=== PATIENT | male | born 1985 | race Caucasian/White ===

== ENCOUNTER 2017-05-04 08:36 | Day surgery (SDC) | payer BC ==
[~2017-05-04 08:36] MED LIST: Lactated Ringers 1,000 ML IV ONE; Lactated Ringers 1,000 ML IV SCH
[2017-05-04] MEDS ORDERED: Ketamine HCl 50 MG/ML IV ONE (08:37)
[2017-05-04] MEDS ORDERED: DIPRIVAN 200 MG/20 ML IV ONE (08:37)
--- NOTE | 2017-05-04 09:24 | HP ---
DATE OF SURGERY: 05/04/2017 HISTORY OF PRESENT ILLNESS: The patient is a 31 year-old with past history of dysphagia, tertiary reflux despite proton pump inhibitor. I feel he would benefit from upper endoscopy, possible biopsy and possible dilatation depending on operative findings. PAST MEDICAL HISTORY: Gastroesophageal reflux disease, mitral valve prolapse. PAST SURGICAL HISTORY: Eye surgery, sinus surgery, reconstructive nose surgery, bilateral knee scopes, EGD. MEDICATIONS: Protonix. ALLERGIES: DEMEROL, BENADRYL, ROBITUSSIN. FAMILY HISTORY: Lung cancer, diabetes. SOCIAL HISTORY: No smoking or alcohol abuse. REVIEW OF SYSTEMS: Twelve systems reviewed per admission assessment. No chest pain or palpitations other systems negative or noncontributory as above and per preadmission questionnaire. PHYSICAL EXAMINATION: GENERAL: No acute distress. HEENT: Sclerae nonicteric. NECK: No JVD. CHEST: Equal excursion, nonlabored breathing. CVS: Regular rate and rhythm. ABDOMEN: Soft. No peritoneal signs. EXTREMITIES: No significant edema. NEURO: Alert, moving extremities symmetrically. No gross motor deficits noted. IMPRESSION: Dysphagia, occasional reflux despite proton pump inhibitor. He is in need of upper endoscopy possible biopsy, possible dilatation depending operative findings. Risks and benefits explained in detail including but not limited to bleeding or infection, risk of bowel injury or perforation possibly requiring open procedure, risk of missed or nondiagnosis or incomplete exam possibly requiring barium swallow, other studies or procedures, general risk of anesthesia or sedation, possibility this procedure may not improve his symptoms that he might need further work up and/or testing or other medical treatment. He understands and agrees to the planned procedure and will proceed with EGD with possible biopsy, possible dilatation as an outpatient.
[2017-05-04 11:28] VITALS: BP 114/70; PULSE 51; O2SAT 99
--- NOTE | 2017-05-05 09:26 | OP ---
SURGERY DATE/TIME: 05/04/2017 1015 PREOPERATIVE DIAGNOSIS: Worsening dysphagia, worsening reflux and heartburn. POSTOPERATIVE DIAGNOSES: 1) Erosive esophagitis. 2) Symptomatic proximal esophageal narrowing. 3) Gastritis. 4) Duodenitis. 5) Slight hiatal hernia. PROCEDURES: 1) EGD with cold biopsy of the small bowel to evaluate for celiac sprue. 2) Cold biopsy of the antrum to evaluate for Helicobacter pylori. 3) Cold biopsy distal esophagus esophagitis. 4) Proximal esophageal dilatation (size 20 balloon dilator). SURGEON: Dr. Philip Adame. ANESTHESIA: MAC. ESTIMATED BLOOD LOSS: Minimal. INDICATIONS: As noted above. Risks and benefits explained in detail and not limited to and consent obtained. DESCRIPTION OF PROCEDURE AND FINDINGS: The patient is taken to the operating room. MAC anesthesia introduced. After official time out and no disagreement with planned procedure, a bite block positioned. Video gastroscope passed down into the oropharynx to proximal esophagus where he was having some trouble with food sticking and getting stuck. He did appear to have narrowing. The scope was able to be just passed back through this but it was felt this would benefit from dilatation. There was no piotr mass. No signs of any erosion, inflammation or mass, just a narrowed area where he was having symptoms. The scope was able to be passed down the gastroesophageal junction about 36 cm. He did have distal erosive esophagitis with some erosions but this did not appear to be significant narrowed area at this point. It was felt the proximal esophagus warranted dilatation but not the distal esophagus. The scope was able to be passed to the very slight hiatal hernia through the stomach through the patent pylorus to the junction of the second and third portion of the duodenum. The duodenum had some mild duodenitis. No signs of any obvious masses. Cold biopsy taken to evaluate for celiac sprue. Good hemostasis noted. There were no signs of any ulcers or masses. The scope pulled back. In the stomach he had some minimal to mild gastritis. Cold biopsy taken to evaluate for Helicobacter pylori. There were no signs of any ulcers, masses or mucosal lesions other than the mild gastritis. On retroflex there was possibly a very slight hiatal hernia versus normal variation. The scope was straightened, pulled back. The gastroesophageal junction noted to be about 36 cm. Again, he had erosive esophagitis. Multiple cold biopsies taken for further evaluation to evaluate for path and to rule out any metaplasia or dysplasia. Good hemostasis noted. At this point the remainder of the esophagus other than the proximal esophageal narrowing that had been symptomatic, the patient feeling food getting stuck in this area, it was felt it warranted dilatation therefore the scope is passed back down in the stomach. Balloon catheter inserted and carefully pulled back to the proximal esophagus and carefully inflated to first stage for about 45 seconds, second stage for 45 seconds and then final stage size 20 balloon dilator for 2 minutes. The balloon was then released and the balloon catheter withdrawn. The scope had been much more easily passed down through this area. It was passed back down in the stomach and then gradually withdrawn. Distal esophageal biopsy sites had good hemostasis. The scope pulled back to proximal esophagus where the dilatation had been accomplished. There was minimal mucosal abrasion but no signs of any full thickness issue or injury secondary to dilatation and again the area was much more widely patent at this point. The patient tolerated the procedure well. Findings discussed with the family out in the waiting area.
== END 2017-05-04 11:42 | disposition home or self-care (01) ==
LOC: SDC 08:36
PROVIDERS: ATTEND Surgery
PROC: 0DB38ZX Excision of Lower Esophagus, Via Natural or Artificial Opening Endoscopic, Diagnostic (ICD-10-PCS; principal; 2017-05-04)
PROC: 0DB88ZX Excision of Small Intestine, Via Natural or Artificial Opening Endoscopic, Diagnostic (ICD-10-PCS; 2017-05-04)
PROC: 0DB78ZX Excision of Stomach, Pylorus, Via Natural or Artificial Opening Endoscopic, Diagnostic (ICD-10-PCS; 2017-05-04)
PROC: 0D718ZZ Dilation of Upper Esophagus, Via Natural or Artificial Opening Endoscopic (ICD-10-PCS; 2017-05-04)
DX: K22.10 Ulcer of esophagus without bleeding (principal); K22.2 Esophageal obstruction; K29.70 Gastritis, unspecified, without bleeding; K29.80 Duodenitis without bleeding; K44.9 Diaphragmatic hernia without obstruction or gangrene; I34.1 Nonrheumatic mitral (valve) prolapse
CPT/HCPCS: 00731; 87081; C1726; J2704